=== PATIENT | male | born 1960 | race Hispanic/Latino ===

== ENCOUNTER 2017-04-13 12:54 | Inpatient (IN) | payer BC ==
[2017-04-13 13:02] VITALS: BMI 29.4
--- NOTE | 2017-04-13 13:38 | ED PDOC ---
Arrival/HPI - General Time Seen by Provider: 04/13/17 12:58 Historian: Patient - History of Present Illness Narrative History of Present Illness (Text): 04/13/17 13:07 A 56 year old male, whose past medical history includes diabetes (not on any medication currently), DVT and Gout, is sent to the emergency department by PMD for evaluation of chest pain. Patient notes yesterday evening and this morning he had some chest tightness with diaphoresis, lightheadedness and nausea. Patient states that he has lost his vision in the left eye over the past few days; being followed by opthalmology for recent retinal artery occlusion. He denies any unilateral weakness, gait change, speech change, or other complaints at this time. PMD: Dr. Flores Time/Duration: 24 hours Symptom Onset: Sudden Symptom Course: Other Quality: Tightness Activities at Onset: Rest Context: Home Past Medical History - Provider Review Nursing Documentation Reviewed: Yes - Infectious Disease Hx of Infectious Diseases: None - Tetanus Immunization Tetanus Immunization: Unknown - Cardiac Hx Cardiac Disorders: No - Neurological Hx Neurological Disorder: No - HEENT Hx HEENT Disorder: No - Renal Hx Renal Disorder: No - Endocrine/Metabolic Hx Diabetes Mellitus Type 2: Yes (stopped taking pills after losing 40 lbs) - Hematological/Oncological Hx Blood Disorders: No - Integumentary Hx Dermatological Disorder: Yes Other/Comment: rosacia - Gastrointestinal Hx Gastrointestinal Disorders: No - Genitourinary/Gynecological Hx Genitourinary Disorders: No - Psychiatric Hx Depression: No Hx Emotional Abuse: No Hx Physical Abuse: No Hx Substance Use: No - Past Surgical History Past Surgical History: Non-Contributing - Anesthesia Hx Anesthesia: No - Suicidal Assessment Feels Threatened In Home Enviroment: No Family/Social History - Physician Review Nursing Documentation Reviewed: Yes Family/Social History: Unknown Family HX Smoking Status: Never Smoked Hx Alcohol Use: No Hx Substance Use: No Hx Substance Use Treatment: No Allergies/Home Meds Allergies/Adverse Reactions: Allergies No Known Allergies Allergy (Verified 04/13/17 13:36) Home Medications: Home Meds Medication Instructions Recorded Confirmed No Known Home Med 04/13/17 04/13/17 Review of Systems - Physician Review All systems were reviewed & negative as marked: Yes - Review of Systems Constitutional: absent: Fevers Eyes: Vision Changes Cardiovascular: Chest Pain Gastrointestinal: Nausea. absent: Vomiting Neurological: Other (lightheaded). absent: Focal Weakness, Gait Changes Endocrine: Diaphoresis Physical Exam Vital Signs Reviewed: Yes Vital Signs Temp Pulse Resp BP Pulse Ox 04/13/17 15:00 69 18 162/86 H 96 04/13/17 13:02 98.3 F 74 18 164/94 H 96 Temperature: Afebrile Blood Pressure: Hypertensive Pulse: Regular Respiratory Rate: Normal Appearance: Positive for: Well-Appearing, Non-Toxic, Comfortable Pain Distress: None Mental Status: Positive for: Alert and Oriented X 3 - Systems Exam Head: Present: Atraumatic, Normocephalic Pupils: Present: PERRL Extroacular Muscles: Present: EOMI Conjunctiva: Present: Normal Mouth: Present: Moist Mucous Membranes Pharnyx: Present: Normal. No: ERYTHEMA, EXUDATE Neck: Present: Normal Range of Motion Respiratory/Chest: Present: Clear to Auscultation, Good Air Exchange. No: Respiratory Distress, Accessory Muscle Use Cardiovascular: Present: Regular Rate and Rhythm, Normal S1, S2. No: Murmurs Abdomen: Present: Normal Bowel Sounds. No: Tenderness, Distention, Peritoneal Signs Back: Present: Normal Inspection Upper Extremity: Present: Normal Inspection. No: Cyanosis, Edema Lower Extremity: Present: Normal Inspection. No: Edema Neurological: Present: GCS=15, CN II-XII Intact, Speech Normal, Motor Func Grossly Intact, Normal Sensory Function Skin: Present: Warm, Dry, Normal Color. No: Rashes Psychiatric: Present: Alert, Oriented x 3, Normal Insight, Normal Concentration Medical Decision Making ED Course and Treatment: 04/13/17 13:07 Impression: A 56 year old male with chest pain. Differential Diagnosis included but are not limited to: ACS Plan: -- Head CT -- Chest X-ray -- Labs -- Urinalysis -- Reassess and disposition Prior Visits: Notes and results from previous visits were reviewed. The patient last presented to the emergency department on 12/07/15 for evaluation of chest discomfort. Progress Notes: 04/13/17 14:[address]: Dictator : James Taylor MD IMPRESSION: No acute findings 04/13/17 16:13 Patient with recent vision loss and chest pain earlier. EKG is unremarkable as are the first set of CE. Creatinine is noted to be at 2.0; will start IVF. CT brain and remainder of neuro exam are unremarkable - will give asa and place on observation on tele on Dr. Flores's service. - Lab Interpretations Lab Results: 04/13/17 13:30 04/13/17 13:30 Lab Results 04/13/17 13:30: Sodium 139, Potassium 4.7, Chloride 108 H, Carbon Dioxide 25, Anion Gap 11, BUN 31 H, Creatinine 2.0 H, Est GFR ( Amer) 42, Est GFR ( Non-Af Amer) 35, Random Glucose 127 H, Calcium 8.8, Magnesium 2.1, Total Bilirubin 0.9, AST 37, ALT 35, Alkaline Phosphatase 67, Lactate Dehydrogenase 524, Total Creatine Kinase 80, Troponin I < 0.01, Total Protein 6.8, Albumin 3.4 , Globulin 3.4, Albumin/Globulin Ratio 1.0 L, Triglycerides 139, Cholesterol 181 , LDL Cholesterol Direct 118, HDL Cholesterol 32, Lipase 176 04/13/17 13:30: Urine Color Yellow, Urine Appearance Sl cloudy, Urine pH 6.0, Ur Specific [place] <= 1.005, Urine Protein 100 H, Urine Glucose (UA) Negative, Urine Ketones Negative, Urine Blood Negative, Urine Nitrate Negative, Urine Bilirubin Negative, Urine Urobilinogen 0.2, Ur Leukocyte Esterase Negative, Urine RBC Negative, Urine WBC Negative 04/13/17 13:30: PT 11.2, INR 1.04, APTT 25.1 04/13/17 13:30: WBC 5.6 D, RBC 3.65, Hgb 11.4 L, Hct 33.5 L, MCV 91.8, MCH 31.2 , MCHC 34.0, RDW 13.1, Plt Count 159, MPV 11.6 H, Gran % 52.5, Lymph % (Auto) 36.9 H, [place] % (Auto) 9.2 H, Eos % (Auto) 0.9 L, Baso % (Auto) 0.5, Gran # 2.92 , Lymph # 2.1, [place] # 0.5, Eos # 0.1, Baso # 0.03 I have reviewed the lab results: Yes - RAD Interpretation Radiology Orders: 04/13/17 13:22 CHEST PORTABLE [RAD] Stat 04/13/17 13:24 Brain [HEAD W/O CONTRAST] [CT] Stat - EKG Interpretation EKG Interpretation (Text): 04/13/17 16:16 NSR @ 67; no ST/T changes; normal intervals; left axis. - Medication Orders Current Medication Orders: Aspirin (Aspirin Chewable) 324 mg PO STAT STA Stop: 04/13/17 16:12 - Scribe Statement The provider has reviewed the documentation as recorded by the Scribe Tiffanie Conroy Provider Scribe Attestation: All medical record entries made by the Scribe were at my direction and personally dictated by me. I have reviewed the chart and agree that the record accurately reflects my personal performance of the history, physical exam, medical decision making, and the department course for this patient. I have also personally directed, reviewed, and agree with the discharge instructions and disposition. Disposition/Present on Arrival - Present on Arrival Any Indicators Present on Arrival: No History of DVT/PE: No History of Uncontrolled Diabetes: No Urinary Catheter: No History Surgical Site Infection Following: None - Disposition Have Diagnosis and Disposition been Completed?: Yes Diagnosis: Chest pain, Vision loss, Renal insufficiency Disposition: HOME/ ROUTINE Disposition Time: 15:10 Patient Plan: Observation, Telemetry Patient Problems: Current Active Problems Problem Status Onset Chest pain Acute Condition: FAIR
[2017-04-13 13:48] LABS: ADD MANUAL DIFF? NO
[2017-04-13 14:03] LABS: ALKALINE PHOSPHATASE 67 U/L (38-133); ALT/SGPT 35 U/L (7-56); AST/SGOT 37 U/L (15-59); BILIRUBIN,TOTAL 0.9 mg/dL (0.2-1.3); BLOOD UREA NITROGEN 31 mg/dL (7-21); CALCIUM 8.8 mg/dL (8.4-10.5); CARBON DIOXIDE 25 mmol/L (21-33); CHLORIDE 108 mmol/L (98-107); CHOLESTEROL 181 mg/dL (130-200); GFR AFRICAN-AMERICAN 42; GLUCOSE,RANDOM 127 mg/dL (70-110); LIPASE 176 U/L (23-300); MAGNESIUM 2.1 mg/dL (1.7-2.2); POTASSIUM 4.7 mmol/L (3.6-5.0); SODIUM 139 mmol/L (132-148); TOTAL PROTEIN 6.8 g/dL (5.8-8.3)
--- NOTE | 2017-04-13 14:03 | CT ---
PROCEDURE: CT HEAD WITHOUT CONTRAST. HISTORY: L eye loss of vision COMPARISON: None available. TECHNIQUE: Axial computed tomography images were obtained through the head/brain without intravenous contrast. Radiation dose: Total exam DLP = 858 mGy-cm. This CT exam was performed using one or more of the following dose reduction techniques: Automated exposure control, adjustment of the mA and/or kV according to patient size, and/or use of iterative reconstruction technique. FINDINGS: HEMORRHAGE: No intracranial hemorrhage. BRAIN: No mass effect or edema. No atrophy or chronic microvascular ischemic changes. VENTRICLES: Unremarkable. No hydrocephalus. CALVARIUM: Unremarkable. PARANASAL SINUSES: Unremarkable as visualized. No significant inflammatory changes. MASTOID AIR CELLS: Unremarkable as visualized. No inflammatory changes. OTHER FINDINGS: None. IMPRESSION: No acute findings
[2017-04-13 14:04] LABS: INR 1.04 (0.93-1.08); PARTIAL THROMBOPLASTIN TIME 25.1 Seconds (23.7-30.8)
[2017-04-13 14:10] LABS: BASO # 0.03 K/mm3 (0.0-2.0); BASO % 0.5 % (0.0-3.0); EOS # 0.1 (0.0-0.7); EOS % 0.9 % (1.5-5.0); GRAN # 2.92 (1.4-6.5); GRAN % 52.5 % (50.0-68.0); HEMATOCRIT 33.5 % (42.0-52.0); LYMPH # 2.1 (1.2-3.4); LYMPH % 36.9 % (22.0-35.0); MEAN CELL VOLUME 91.8 fL (80.0-105.0); MEAN CORPUSCULAR HEMOGLOBIN 31.2 pg (25.0-35.0); MEAN PLATELET VOLUME 11.6 fl (7.0-11.0); MONO # 0.5 (0.1-0.6); MONO % 9.2 % (1.0-6.0); PLATELET COUNT 159 10^3/uL (120.0-450.0); RED CELL DISTRIBUTION WIDTH 13.1 % (11.5-14.5); URINE BILIRUBIN NEGATIVE (NEGATIVE); URINE BLOOD NEGATIVE (NEGATIVE); URINE GLUCOSE (UA) NEGATIVE (NEGATIVE); URINE KETONE NEGATIVE (NEGATIVE); URINE LEUKOCYTE ESTERASE NEGATIVE Leu/uL (NEGATIVE); URINE PROTEIN 100 mg/dL (<30 mg/dL); URINE UROBILINOGEN 0.2 E.U./dL (<1 E.U./dL); WHITE BLOOD COUNT 5.6 10^3/ul (4.5-11.0)
[2017-04-13 14:12] LABS: URINE APPEARANCE SL CLOUDY (CLEAR); URINE COLOR YELLOW (YELLOW)
[2017-04-13 14:17] LABS: TROPONIN I < 0.01 ng/mL
[2017-04-13 14:29] LABS: URINE RBC NEGATIVE /hpf (0-2); URINE WBC NEGATIVE /hpf (0-6)
--- NOTE | 2017-04-13 17:13 | US ---
PROCEDURE: Bilateral carotid artery duplex ultrasound HISTORY: Carotid stenosis TIA PHYSICIAN(S): Jalen Hahn MD. TECHNIQUE: Duplex sonography and color-flow Doppler were used to evaluate the carotid bifurcations and limited segments of the vertebral arteries bilaterally. The exam is somewhat limited by tortuous vessels. FINDINGS: There is mild smooth heterogeneous plaque noted at the carotid bifurcations bilaterally. The peak systolic velocity in the proximal right internal carotid artery is 81 cm/sec. This corresponds to a 20 to 39% proximal right ICA stenosis. Normal systolic velocities are noted in the proximal right external carotid artery. There is antegrade flow in the right vertebral artery. The peak systolic velocity in the proximal left internal carotid artery is 77 cm/sec. This corresponds to a 20 to 39% proximal left ICA stenosis. Normal systolic velocities are noted in the proximal left external carotid artery. There is antegrade flow in the left vertebral artery. IMPRESSION: 1. Bilateral 20-39% proximal ICA stenoses. 2. Antegrade flow in both vertebral arteries.
--- NOTE | 2017-04-13 17:38 | RAD ---
HISTORY: chest pain COMPARISON: 12/07/2015 FINDINGS: LUNGS: No active pulmonary disease. PLEURA: No significant pleural effusion identified, no pneumothorax apparent. CARDIOVASCULAR: Normal. OSSEOUS STRUCTURES: No significant abnormalities. VISUALIZED UPPER ABDOMEN: Normal. OTHER FINDINGS: None. IMPRESSION: No active disease.
[2017-04-13] MEDS ORDERED: Pneumococcal 23-Valent Vaccine IM ONE (22:05)
--- NOTE | 2017-04-13 22:11 | CARD ---
APPROVED REPORT EKG Measurement Heart [id number] <Conclusion> Normal sinus rhythm Minimal voltage criteria for LVH, may be normal variant Borderline ECG
[2017-04-14 07:57] LABS: ADD MANUAL DIFF? NO
[2017-04-14 08:01] LABS: BASO # 0.02 K/mm3 (0.0-2.0); BASO % 0.4 % (0.0-3.0); EOS # 0.1 (0.0-0.7); EOS % 1.6 % (1.5-5.0); GRAN # 3.06 (1.4-6.5); GRAN % 56.1 % (50.0-68.0); HEMATOCRIT 32.7 % (42.0-52.0); LYMPH # 1.8 (1.2-3.4); LYMPH % 33.5 % (22.0-35.0); MEAN CELL VOLUME 91.9 fL (80.0-105.0); MEAN CORPUSCULAR HEMOGLOBIN 30.6 pg (25.0-35.0); MEAN CORPUSCULAR HGB CONC 33.3 g/dl (31.0-37.0); MEAN PLATELET VOLUME 11.2 fl (7.0-11.0); MONO # 0.5 (0.1-0.6); MONO % 8.4 % (1.0-6.0); PLATELET COUNT 145 10^3/uL (120.0-450.0); WHITE BLOOD COUNT 5.5 10^3/ul (4.5-11.0)
[2017-04-14 08:17] LABS: BLOOD UREA NITROGEN 32 mg/dL (7-21); CARBON DIOXIDE 26 mmol/L (21-33); CHLORIDE 110 mmol/L (98-107); GFR AFRICAN-AMERICAN 45; GLUCOSE,RANDOM 156 mg/dL (70-110); POTASSIUM 5.2 mmol/L (3.6-5.0); SODIUM 141 mmol/L (132-148); URIC ACID 7.5 mg/dL (3.5-8.5)
[2017-04-14 09:33] LABS: CHOLESTEROL 168 mg/dL (130-200)
[2017-04-14 09:49] LABS: TROPONIN I < 0.01 ng/mL
--- NOTE | 2017-04-14 16:04 | CARD ---
APPROVED REPORT Protocol: SERJIO Test Type: Sestamibi Stress Test Attending Physician: Dr. Xenia Hwang Referring Physician: Dr. Lauro Flores Test Indications: Chest Pain Height:5 ft 10 in Weight:205lbs Medications: ASA lipitor Medical History: 56 y/o male hx of chest pain Target HR: 165 bpm Resting ECG: RSR. Resting Heart Rate: 74 bpm Resting Blood Pressure: 110/80mmHg Submaximum (85%): 140 bpm POST EXERCISE Reason for Termination: Fatigue. Target HR: No Max HR: 164 bpm 99% of Maximum Predicted HR: 165 bpm Exercise duration: 10:41 min:sec, 4 Stage Exercise capacity: 12.8METs Max Blood Pressure: 150/88mmHg Blood Pressure response to exercise: normal resting BP - appropriate response Heart Rate response to exercise: appropriate Chest Pain: No, none Angina index: 0 Arrhythmia: No, none ST Change: No, none Deviation: 0 mm TEST SUMMARY [id number]/.0. [id number]/80.0. EXERCISESTAGE [id number]/84.0. EXERCISESTAGE 203:[id number]/84.0. EXERCISESTAGE 303:[id number]/84.0. EXERCISESTAGE 401:[id number]/.4. [id number]/82.0. INTERPRETATION Stress EKG Conclusion: MYOVIEW NUCLEAR STRESS TEST STOPPED AFTER 10 MINUTES AND 41 SECONDS OF SERJIO PROTOCOL DUE TO FATIGUE. PATIENT ACHIEVED 93% OF PREDICTED HEART RATE. NO CHEST PAIN. NO ST-T CHANGES. NUCLEAR SCAN REPORT PENDING. Signed by Xenia Hwang Electronically Approved: 04/14/2017 11:09:31 EXAM: Myocardial Perfusion REST/STRESS Stress Test Type: Exercise Treadmill Imaging Protocol Rest Spect myocardial perfusion imaging was performed in supine position 45 minutes following the injection of 10.9 mCi of Tc-99 Myoview. At peak stress, the patient was injected intravenously with 30.9mCi of Tc-99 tetrofosmin after an exercise time of 10 minutes and 41 seconds. Gated Stress Spect was performed 60 minutes after intravenous Tc-99 Myoview injection. The images were gated to evaluate regional wall motion and calculate ventricular ejection fraction.Images were reconstructed using backfilter projection method in short horizontal and verticle long axis. Spect slices were generated. LV Perfusion The quality of the study is good. The left ventricle is mildly enlarged in size. The right ventricle is unremarkable. The lung uptake is normal. The distribution of tracer reveals a small area of moderately to severely decreased perfusion in the apical wall on the stress study. The remainder of the LV myocardium is unremarkable. The rest myocardial perfusion study shows improvement of apical defect. Wall Motion Wall motion study shows good contractility of the left ventricle. LVEF = 51%. Conclusion 1. Probably abnormal SPECT myocardial perfusion study. 2. Partially reversible, apical defect is suspicious of ischemia. 3. Normal gated wall motion of the left ventricle.
--- NOTE | 2017-04-14 19:17 | CARD ---
APPROVED REPORT EXAM: Two-dimensional and M-mode echocardiogram with Doppler and color Doppler. INDICATION Chest Pain 2D DIMENSIONS Left Atrium (2D)4.0 (1.6-4.0cm)IVSd1.0 (0.7-1.1cm) LVDd4.5 (3.9-5.9cm)PWd1.1 (0.7-1.1cm) LVDs3.0 (2.5-4.0cm)FS (%) 34.3 % LVEF (%)63.4 (>50%) M-Mode DIMENSIONS Aortic Root2.70 (2.2-3.7cm)Aortic Cusp Exc.1.70 (1.5-2.0cm) Aortic Valve AoV Peak Gtyjclfk964.0cm/Chung Peak GR.7mmHg Mitral Valve MV E Wsggkviq21.8cm/sMV A Sghgswaz93.5cm/sE/A ratio0.9 TDI E/Lateral E'0.0E/Medial E'0.0 Tricuspid Valve TR Peak Vvxsgrws742ft/sRAP OPAEMLVV01xnKoLZ Peak Gr.19mmHg [id number] LEFT VENTRICLE The left ventricle is normal size. There is mild concentric left ventricular hypertrophy. The left ventricular function is normal.EF-55-60% There is normal LV segmental wall motion. Transmitral Doppler flow pattern is Grade III-reversible restrictive diastolic dysfunction. No left ventricle thrombus noted on this study. There is no ventricular septal defect visualized. There is no left ventricular aneurysm. There is no mass noted in the left ventricle. RIGHT VENTRICLE The right ventricle is normal size. There is normal right ventricular wall thickness. The right ventricular systolic function is normal. ATRIA The left atrium is borderline dilated. The right atrium size is normal. The interatrial septum is intact with no evidence for an atrial septal defect. AORTIC VALVE The aortic valve is thickened but opens well. No aortic regurgitation is present. There is no aortic valvular stenosis. There is no aortic valvular vegetation. MITRAL VALVE The mitral valve is thickened but opens well. Mitral regurgitation is mild. There is no mitral valve stenosis. There is no evidence of mitral valve prolapse. TRICUSPID VALVE The tricuspid valve leaflets are thickened , but open well. There is mild tricuspid regurgitation.RVSP-29 mmof Hg. There is no tricuspid valve stenosis. There is no tricuspid valve prolapse or vegetation. PULMONIC VALVE The pulmonary valve is normal in structure. There is trace pulmonic valvular regurgitation. There is no pulmonic valvular stenosis. GREAT VESSELS The aortic root is normal in size. The ascending aorta is normal in size. The pulmonary artery is normal. The IVC is normal in size and collapses >50% with inspiration. PERICARDIAL EFFUSION There is no pleural effusion. There is no pericardial effusion. <Conclusion> The left ventricle is normal size. There is mild concentric left ventricular hypertrophy. The left ventricular function is normal.EF-55-60% Mitral regurgitation is mild. There is mild tricuspid regurgitation.RVSP-29 mmof Hg. The IVC is normal in size and collapses >50% with inspiration. There is no pericardial effusion. No Vegetation or Thrombus noted.
[2017-04-14 23:40] VITALS: RESP 20; O2SAT 97
[2017-04-15 06:03] VITALS: BP 148/92; TEMP 97.7
--- NOTE | 2017-04-15 07:17 | CP.PCM.PN ---
Subjective - Date & Time of Evaluation Date of Evaluation: 04/15/17 Time of Evaluation: 07:00 - Subjective Subjective: S. pt isfeeling ok Objective - Vital Signs/Intake and Output Vital Signs (last 24 hours): Temp Pulse Resp BP Pulse Ox 97.7 F 60 20 148/92 H 97 04/15/17 06:00 04/15/17 06:00 04/15/17 06:00 04/15/17 06:00 04/15/17 06:00 Intake and Output: 04/15/17 04/15/17 06:59 18:59 Intake Total 480 Balance 480 - Medications Medications: Current Medications Aspirin (Ecotrin) 81 mg PO DAILY [facility] Last Admin: 04/14/17 11:42 Dose: 81 mg Atorvastatin Calcium (Lipitor) 20 mg PO DIN [facility] Last Admin: 04/14/17 17:22 Dose: 20 mg - Labs Labs: 04/14/17 07:45 04/14/17 07:45 PT 11.2 Seconds (9.9-11.8) 04/13/17 13:30 INR 1.04 (0.93-1.08) 04/13/17 13:30 APTT 25.1 Seconds (23.7-30.8) 04/13/17 13:30 - Constitutional Appears: Well - Head Exam Head Exam: ATRAUMATIC, NORMAL INSPECTION, NORMOCEPHALIC - Eye Exam Eye Exam: EOMI, Normal appearance, PERRL Pupil Exam: NORMAL ACCOMODATION, PERRL - ENT Exam ENT Exam: Mucous Membranes Moist, Normal Exam - Neck Exam Neck Exam: Full ROM, Normal Inspection. absent: Lymphadenopathy - Respiratory Exam Respiratory Exam: Clear to Ausculation Bilateral, NORMAL BREATHING PATTERN - Cardiovascular Exam Cardiovascular Exam: REGULAR RHYTHM, +S1, +S2. absent: Murmur - GI/Abdominal Exam GI & Abdominal Exam: Soft, Normal Bowel Sounds. absent: Tenderness - Rectal Exam Rectal Exam: NORMAL INSPECTION - Exam Exam: Circumcision, NORMAL INSPECTION External exam: NORMAL EXTERNAL EXAM Speculum exam: NORMAL SPECULUM EXAM Bimanual exam: NORMAL BIMANUAL EXAM - Extremities Exam Extremities Exam: Full ROM, Normal Capillary Refill, Normal Inspection. absent : Joint Swelling, Pedal Edema - Back Exam Back Exam: NORMAL INSPECTION - Neurological Exam Neurological Exam: Alert, Awake, CN II-XII Intact, Normal Gait, Oriented x3 - Psychiatric Exam Psychiatric exam: Normal Affect, Normal Mood - Skin Skin Exam: Dry, Intact, Normal Color, Warm Assessment and Plan (1) Vision loss Status: Acute - Assessment and Plan (Free Text) Assessment: Abnormal stress test vision loss Plan: Will hold critical access hospital till Neurio/ ophtahlmolgy W/u done
--- NOTE | 2017-04-15 08:33 | MRI ---
PROCEDURE: MRI BRAIN WITHOUT CONTRAST HISTORY: amaouosis fujax COMPARISON: None. TECHNIQUE: Multiplanar, multisequence MR images of the brain were obtained without intravenous contrast enhancement. FINDINGS: HEMORRHAGE: None DWI: No evidence of an acute or early subacute infarction. BRAIN PARENCHYMA: No mass effect or edema. No atrophy or chronic microvascular ischemic changes. VENTRICLES: Unremarkable. No hydrocephalus. CRANIUM: Unremarkable. ORBITS: Grossly unremarkable. PARANASAL SINUSES/MASTOIDS: Clear VASCULAR SYSTEM: Skull base flow voids intact. OTHER FINDINGS: None. IMPRESSION: Unremarkable non contrast enhanced MRI of the brain.
[2017-04-15 08:47] LABS: HEMATOCRIT 34.5 % (42.0-52.0); MEAN CELL VOLUME 91.5 fL (80.0-105.0); MEAN CORPUSCULAR HEMOGLOBIN 31.3 pg (25.0-35.0); MEAN CORPUSCULAR HGB CONC 34.2 g/dl (31.0-37.0); MEAN PLATELET VOLUME 11.9 fl (7.0-11.0); WHITE BLOOD COUNT 6.3 10^3/ul (4.5-11.0)
[2017-04-15 11:40] VITALS: PULSE 75
== END 2017-04-15 11:53 | disposition home or self-care (01) | DRG 313 ==
LOC: ED 12:54 → ERH 15:11 → 2RSO 21:08 → OBSVTOIN 04-14 15:00
PROVIDERS: ADMIT Internal Medicine; ATTEND Internal Medicine
DX: R07.89 Other chest pain (principal); E11.311 Type 2 diabetes mellitus with unspecified diabetic retinopathy with macular edema; H34.12 Central retinal artery occlusion, left eye; H54.7 Unspecified visual loss; R94.39 Abnormal result of other cardiovascular function study; N28.9 Disorder of kidney and ureter, unspecified

== ENCOUNTER 2017-10-09 14:22 | Inpatient (IN) | payer BC ==
[2017-10-09 14:36] VITALS: BMI 28.5
[2017-10-09 15:28] LABS: BASO # 0.01 K/mm3 (0.0-2.0); BASO % 0.1 % (0.0-3.0); EOS % 0.3 % (1.5-5.0); GRAN # 4.28 (1.4-6.5); GRAN % 62.6 % (50.0-68.0); HEMATOCRIT 31.9 % (42.0-52.0); LYMPH # 1.8 (1.2-3.4); LYMPH % 26.2 % (22.0-35.0); MEAN CELL VOLUME 90.9 fl (80.0-105.0); MEAN CORPUSCULAR HEMOGLOBIN 31.3 pg (25.0-35.0); MEAN CORPUSCULAR HGB CONC 34.5 g/dl (31.0-37.0); MEAN PLATELET VOLUME 11.5 fl (7.0-11.0); MONO # 0.7 (0.1-0.6); MONO % 10.8 % (1.0-6.0); RED CELL DISTRIBUTION WIDTH 12.8 % (11.5-14.5); WHITE BLOOD COUNT 6.8 10^3/ul (4.5-11.0)
[2017-10-09 15:49] LABS: TROPONIN I < 0.01 ng/mL
[2017-10-09 15:50] LABS: INR 1.08 (0.93-1.08)
[2017-10-09 15:53] LABS: ALB/GLOB RATIO 0.9 (1.1-1.8); ALKALINE PHOSPHATASE 94 U/L (38-126); ALT/SGPT 51 U/L (7-56); AST/SGOT 48 U/L (17-59); BILIRUBIN,TOTAL 0.4 mg/dL (0.2-1.3); BLOOD UREA NITROGEN 34 mg/dL (7-21); CALCIUM 8.2 mg/dL (8.4-10.5); CARBON DIOXIDE 23 mmol/L (21-33); CHLORIDE 103 mmol/L (98-107); GFR AFRICAN-AMERICAN 26; GLUCOSE,RANDOM 140 mg/dL (70-110); MAGNESIUM 2.3 mg/dL (1.7-2.2); POTASSIUM 4.9 mmol/L (3.6-5.0); SODIUM 136 mmol/L (132-148); TOTAL PROTEIN 6.9 g/dL (5.8-8.3)
[2017-10-09 16:26] LABS: URINE BILIRUBIN NEGATIVE (NEGATIVE); URINE BLOOD SMALL (NEGATIVE); URINE GLUCOSE (UA) 100 mg/dL (NEGATIVE); URINE KETONE NEGATIVE (NEGATIVE); URINE LEUKOCYTE ESTERASE NEGATIVE Leu/uL (NEGATIVE); URINE PROTEIN >=300 mg/dL (<30 mg/dL); URINE UROBILINOGEN 0.2 E.U./dL (<1 E.U./dL)
[2017-10-09 16:39] LABS: URINE APPEARANCE SL CLOUDY (CLEAR); URINE COLOR YELLOW (YELLOW)
[2017-10-09 16:45] LABS: URINE BACTERIA MOD (NEG); URINE WBC 15 - 20 /hpf (0-6)
--- NOTE | 2017-10-09 16:54 | RAD ---
HISTORY: History of persistent fevers COMPARISON: 04/13/2017 FINDINGS: LUNGS: No active pulmonary disease. PLEURA: No significant pleural effusion identified, no pneumothorax apparent. CARDIOVASCULAR: No radiographic findings to suggest acute or significant cardiovascular disease. OSSEOUS STRUCTURES: No significant abnormalities. VISUALIZED UPPER ABDOMEN: Normal. OTHER FINDINGS: None. IMPRESSION: No active disease. No significant interval change compared to the prior examination(s).
[2017-10-09] MEDS ORDERED: cefTRIAXone 1 gm 1 GM/100 ML BAG IVPB STA (17:01)
--- NOTE | 2017-10-09 18:53 | ED PDOC ---
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 Reportedly the patient has been experiencing fevers for the past 4-5 days. He states that he was been waking up in the middle of the night with " cold sweats" and headaches, and has had fever intermittently of "up to 104". He reports some generalized aches and pains, but denies any coughing or congestion. He denies abdominal pain. He denies nausea or vomiting or diarrhea. He denies dysuria or frequency. He states that he was seen by his PMD and prescribed Tamiflu earlier in the week. He presented to [facility] in [facility] for persistent symptoms and was found to have elevated Cr of 3.0. Patient transferred to [facility] accepted by Dr. Melba Flores for admission for evaluation of symptoms and acute renal failure. Patient DENIES any recent travel. Denies any chest pain or shortness of breath. Denies headache currently. States he has had leg edema IN THE PAST but not currently. Reports he has had hypertension that appears to be less controlled recently. He denies extremity rash or rash to palms or soles. States he has had blister sores develop in mouth over the past 2 days. Denies drooling or difficulty swallowing currently. He states urine appears darker over the past several days, and he has had some increased urination over the past year. Time/Duration: Prior to Arrival Symptom Onset: Gradual Past Medical History - Infectious Disease Hx of Infectious Diseases: None - Tetanus Immunization Tetanus Immunization: Unknown - Cardiac Hx Hypertension: Yes - Pulmonary Hx Respiratory Disorders: No - Neurological HX Cerebrovascular Accident: Yes (L eye partial vision) - HEENT Hx HEENT Disorder: Yes (eyeglasses) Other/Comment: pt is being treated by dr brand from [facility] with injections to both eyes every 6 wks and laser treatments for diabetic retinopathy on april 10 2017 pt lost sight in left eye for 2 hours, then again on april 11 2017 fot 4 or 5 hours went to see his eye specilist and was told he had a stroke to left eye cause unknown - Renal Hx Renal Disorder: Yes Hx Renal Failure: Yes - Endocrine/Metabolic Hx Diabetes Mellitus Type 2: Yes (controlled by diet) - Hematological/Oncological Hx Blood Disorders: No - Integumentary Hx Dermatological Disorder: Yes Other/Comment: [place] - Musculoskeletal/Rheumatological Hx Falls: No - Gastrointestinal Hx Gastrointestinal Disorders: No - Genitourinary/Gynecological Hx Genitourinary Disorders: No - Psychiatric Hx Depression: No Hx Emotional Abuse: No Hx Physical Abuse: No Hx Substance Use: No - Past Surgical History Past Surgical History: Non-Contributing - Surgical History Hx Musculoskeletal Surgery: Yes Hx Orthopedic Surgery: Yes Other/Comment: Rhinoplasty. Carpal tunnel - Anesthesia Hx Anesthesia: Yes Hx Anesthesia Reactions: No Hx Malignant Hyperthermia: No - Suicidal Assessment Feels Threatened In Home Enviroment: No Family/Social History Family/Social History: Unknown Family HX Smoking Status: Never Smoked Hx Alcohol Use: No Hx Substance Use: No Hx Substance Use Treatment: No Allergies/Home Meds Allergies/Adverse Reactions: Allergies No Known Allergies Allergy (Verified 04/13/17 13:36) Home Medications: Home Meds Medication Instructions Recorded Confirmed Lisinopril [Zestril] 2 tab PO DAILY 10/09/17 10/09/17 Metoprolol Succinate [Toprol XL] 1 tab PO DAILY 10/09/17 10/09/17 Oseltamivir Phosphate [Tamiflu] 1 cap PO DAILY 10/09/17 10/09/17 Review of Systems - Review of Systems Constitutional: Fatigue, Fevers, Night Sweats. absent: Weight Change Eyes: Vision Changes (since March of this year, no new changes) ENT: Sore Throat. absent: Tinnitus, Voice Changes, Rhinorrhea, Sinus Congestion Respiratory: absent: SOB, Wheezing Cardiovascular: absent: Chest Pain, Palpitations, Calf Pain, CURRY Gastrointestinal: absent: Abdominal Pain, Nausea, Vomiting Genitourinary Male: absent: Dysuria, Frequency, Hematuria Musculoskeletal: Myalgias. absent: Arthralgias, Back Pain, Neck Pain Skin: absent: Rash Neurological: Headache, Dizziness. absent: Focal Weakness, Gait Changes, Speech Changes, Facial Droop, Disequilibrium, Seizure Endocrine: Diaphoresis. absent: Polyuria Hemo/Lymphatic: absent: Easy Bleeding Psychiatric: absent: Depression Physical Exam Vital Signs Reviewed: Yes Vital Signs Temp Pulse Resp BP Pulse Ox 10/09/17 16:31 79 18 148/89 97 10/09/17 14:40 98.3 F 81 18 155/93 H 97 Temperature: Afebrile Appearance: Positive for: Well-Appearing, Non-Toxic, Comfortable Pain Distress: Mild Mental Status: Positive for: Alert and Oriented X 3 - Systems Exam Head: Present: Atraumatic, Normocephalic Pupils: Present: Other (visual acuity at baseline with no reported acute visual field or acuity disturbance) Extroacular Muscles: Present: EOMI Conjunctiva: No: Injected Ears: No: Erythema Mouth: Present: Moist Mucous Membranes, Other (sores noted to lips, mucous membranes) Pharnyx: No: ERYTHEMA, EXUDATE, Peritonsilar Swelling, Uvular Deviation, Muffled /Hoarse Voice, Strider Nose (Internal): Present: Normal Inspection Neck: Present: Normal Range of Motion. No: Meningeal Signs, MIDLINE TENDERNESS Respiratory/Chest: Present: Clear to Auscultation. No: Respiratory Distress, Wheezes, Tachypneic Cardiovascular: Present: Regular Rate and Rhythm, Murmurs Abdomen: No: Tenderness, Distention Upper Extremity: No: Cyanosis Lower Extremity: Present: NORMAL PULSES, Neurovascularly Intact. No: Edema, Tenderness, Swelling Neurological: Present: Motor Func Grossly Intact, Normal Sensory Function Skin: Present: Warm Psychiatric: Present: Alert, Normal Insight, Normal Concentration Medical Decision Making ED Course and Treatment: 10/09/17 19:17 Patient is a 57 yo male transferred to [place] from outside facility. I reviewed labs from outside facility. Patient had received IV fluid bolus at outside facility prior to arrival. He is currently afebrile but reports intermittent high fevers which will wake him up over the past 4-5 days. Lungs are clear. No cellulitis noted. He does report darker urine over the past several weeks. No retention or frequency. He is nontoxic appearing currently with no meningeal signs. PMHx is significant for left eye visual loss that was diagnosed as leasing representative of CVA in March. He follows up with opthamologist in [facility]. He currently has no acute neurologic deficits. He denies recent travel. No vomiting or diarrhea or bloody stools. UA is significant for casts and protein. It is possible there is a component of a uti, although Cr elevated to 3.0 in March Cr was 1.9. Currently postassium levels unremarkable. I am suspicious of possible infectious etiology of his elevated Cr. Cannot exclude a nephrotic or nephritic syndrome, patient requires close monitoring and analysis of protein and casts in urine in context of recent fevers. He has not traveled to [place] or [place]. His neck is supple with no headache currently, no meningeal signs. I have updated Dr. Melba Flores with patient's presentation and patient admitted. He is cv stable on re-exam, no respiratory distress noted. Ddx nephotic syndrome, nephritic syndrome, UTI, pyelonephritis, endocarditis, dengue, typhoid, infectious process, vasculitis, renal failure, dehydration. - Lab Interpretations Lab Results: 10/09/17 15:08 10/09/17 15:08 Lab Results 10/09/17 15:08: Sodium 136, Potassium 4.9, Chloride 103, Carbon Dioxide 23, Anion Gap 15, BUN 34 H, Creatinine 3.0 H, Est GFR ( Amer) 26, Est GFR ( Non-Af Amer) 22, Random Glucose 140 H, Calcium 8.2 L, Magnesium 2.3 H, Total Bilirubin 0.4, AST 48, ALT 51, Alkaline Phosphatase 94, Lactate Dehydrogenase 629, Total Creatine Kinase 60, Troponin I < 0.01, Total Protein 6.9, Albumin 3.3 , Globulin 3.7, Albumin/Globulin Ratio 0.9 L 10/09/17 15:08: PT 11.8, INR 1.08, APTT 30.0 10/09/17 15:08: WBC 6.8, RBC 3.51, Hgb 11.0 L, Hct 31.9 L, MCV 90.9, MCH 31.3, MCHC 34.5, RDW 12.8, Plt Count 139, MPV 11.5 H, Gran % 62.6, Lymph % (Auto) 26.2 , [place] % (Auto) 10.8 H, Eos % (Auto) 0.3 L, Baso % (Auto) 0.1, Gran # 4.28, Lymph # 1.8, [place] # 0.7 H, Eos # 0.0, Baso # 0.01 - RAD Interpretation Android Developer: Radiologist - EKG Interpretation EKG Interpretation (Text): 10/09/17 19:15 EKG at 15:30 normal sinus rhythm rate of 72 with premature atrial complexes, moderate voltage criteria for lvh Interpreted by ED Physician: Yes Type: 12 lead EKG - Medication Orders Current Medication Orders: Discontinued Medications Ceftriaxone Sodium (Rocephin 1 Gram Ivpb) 1 gm in 100 mls @ 200 mls/hr IVPB ONCE STA PRN Reason: Protocol Stop: 10/09/17 17:30 Last Admin: 10/09/17 17:27 Dose: 200 mls/hr eMAR Start Stop Document 10/09/17 17:27 RG (Rec: 10/09/17 17:28 RG [id number]) Intravenous Solution Start Date 10/09/17 Start Time 17:20 End Date 10/09/17 Lidocaine HCl (Lidocaine 2% Viscous) 15 ml MM STAT STA Stop: 10/09/17 17:21 Last Admin: 10/09/17 17:28 Dose: 15 ml Disposition/Present on Arrival - Present on Arrival Any Indicators Present on Arrival: No History of DVT/PE: No History of Uncontrolled Diabetes: No Urinary Catheter: No History of Decub. Ulcer: No History Surgical Site Infection Following: None - Disposition Have Diagnosis and Disposition been Completed?: Yes Diagnosis: Acute renal failure, Abnormal casts in urine, Hypertension, History of fever, Proteinuria Disposition: HOSPITALIZED Disposition Time: 15:15 Patient Plan: Admission Condition: FAIR
[2017-10-09] MEDS: Metoprolol Succinate 25 mg XL Tab PO SCH (20:00)
[2017-10-09] MEDS: Dextrose 5%/0.45% NS 1,000 ML IV SCH (20:03)
[2017-10-09] MEDS ORDERED: Pneumococcal 23-Valent Vaccine IM ONE (22:43)
[2017-10-10 07:35] LABS: HEMATOCRIT 31.8 % (42.0-52.0); MEAN CELL VOLUME 90.6 fl (80.0-105.0); MEAN CORPUSCULAR HEMOGLOBIN 31.3 pg (25.0-35.0); MEAN CORPUSCULAR HGB CONC 34.6 g/dl (31.0-37.0); RED CELL DISTRIBUTION WIDTH 12.7 % (11.5-14.5); WHITE BLOOD COUNT 7.8 10^3/ul (4.5-11.0)
[2017-10-10 07:55] LABS: ALB/GLOB RATIO 0.9 (1.1-1.8); BILIRUBIN,TOTAL 0.4 mg/dL (0.2-1.3); CALCIUM 8.3 mg/dL (8.4-10.5); POTASSIUM 4.8 mmol/L (3.6-5.0); TOTAL PROTEIN 6.8 g/dL (5.8-8.3)
[2017-10-10] MEDS: Metoprolol Succinate 25 mg XL Tab PO SCH (09:04)
--- NOTE | 2017-10-10 09:52 | CARD ---
APPROVED REPORT EKG Measurement Heart [id number] <Conclusion> Sinus rhythm with premature atrial complexes Leftward axis No change
--- NOTE | 2017-10-10 13:51 | US ---
PROCEDURE: Ultrasound of the Kidneys HISTORY: ARF, CKD, UTI, R/O hydro COMPARISON: None available. TECHNIQUE: Sonogram of the kidneys. FINDINGS: RIGHT KIDNEY: Measures: 5.6 x 10.3 cm. Normal in size, contour and echogenicity. No stone, solid mass lesion or hydronephrosis visualized. LEFT KIDNEY: Measures: 6.3 x 10.4 cm. Normal in size, contour and echogenicity. No stone, solid mass lesion or hydronephrosis visualized. OTHER FINDINGS: None. IMPRESSION: Unremarkable renal sonogram.
[2017-10-10] MEDS: Dextrose 5%/0.45% NS 1,000 ML IV SCH (21:11)
--- NOTE | 2017-10-10 21:30 | CON ---
DATE: 10/10/2017 The patient admitted for Lauro Flores MD REFERRING PHYSICIAN: James Flores MD REASON FOR CONSULTATION: Evaluation of the patient unknown to me who presents with acute on chronic kidney failure in the setting of fever blisters, gout attack, and possible influenza. HISTORY OF PRESENT ILLNESS: The patient is a 57-year-old white male with a long history of diabetes mellitus. Initially non controlled. The patient had lost significant amount of weight and his hemoglobin A1c is now on the 6.5% range. The patient was told in the past that he had mild weakness of the kidney. Going back to the summer of 2016. His BUN was in the 25-30 range with a creatinine in the 1.9 to 2.0 range. The patient was seen after having had a gout attack earlier last week by Dr. Flores for possible influenza. He was treated with Tamiflu. Over the last several days of fever blisters have broken out. His oral intake has decreased. The patient had fevers and sweats went to the outpatient [facility] emergency room in [place] was noted to have an elevated BUN and creatinine and was sent over to the hospital after consultation with Dr. Flores. The patient has a history of diabetic retinopathy receiving laser surgery, he also has a history of mild diabetic nephropathy with mild proteinuria and likely chronic kidney disease stage III. The patient is noted to be mildly anemic. He is being treated for hyperlipidemia. We are asked to evaluate the patient for his elevated BUN and creatinine. Past medical history significant for NIDDM of 20+ years duration. History of mild diabetic nephropathy with chronic kidney disease stage III, history of diabetic retinopathy receiving laser surgery, past history of CVA with diminished vision in his left eye. History of gout, no history of diabetic neuropathy, history of hyperlipidemia and history of mild anemia. Echocardiogram done in 03/2017 shows LVH with MR/TR an ejection fraction of 55% to 60%. MEDICATIONS AT HOME: Include that of Tamiflu, Toprol, Zestril, Lipitor, and Ecotrin. ALLERGIES: THE PATIENT HAS NO KNOWN ALLERGIES TO MEDICATIONS. CURRENT MEDICATIONS IN HOSPITAL: Include that of D5 half-normal saline 80 mL an hour, Ecotrin, viscous lidocaine, Lipitor, Macrobid, Motrin p.r.n., Tamiflu, Toprol, and Zestril. 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 No history of cigarette smoking. No history of alcohol use. FAMILY HISTORY: Father of complications of heart disease. Mother of hypertension and a severe stroke. REVIEW OF SYSTEMS: GENERAL: The patient states appetite and weight have been stable until this recent episode. HEENT: Positive diminished vision in his left eye secondary to a past stroke. History of diabetic retinopathy receiving laser surgery. PULMONARY: No shortness of breath. No history of COPD and zero bronchitis, pneumonia or asthma. CARDIAC: No known history of cardiovascular disease. Positive LVH, MR/TR with ejection fraction of 55% to 60% on echocardiogram done earlier this year. GASTROINTESTINAL: Positive for mild nausea and intermittent vomiting. No diarrhea. GENITOURINARY: The patient states increased urine output. History of chronic kidney disease stage III. ENDOCRINE: History of diabetes on diet therapy, history of diabetic retinopathy and diabetic nephropathy, likely mild. MUSCULOSKELETAL: No complaints. NEUROLOGIC: Past history of CVA with diminished vision in his left eye. HEMATOLOGY/ONCOLOGY: History of mild anemia. No history of malignancy. PSYCHIATRIC HISTORY: Negative. PHYSICAL EXAMINATION: GENERAL: The patient is currently seen on . He is lying comfortable in bed, IV fluids are infusing. He appears to be in no acute distress other than discomfort from the fever blisters he has on his face and lip area. VITAL SIGNS: Blood pressure ranging from 148 to 155 systolic, diastolics ranging from 82 to 89. Temperature 98.5, T max last night was 101.5. Pulse is 77. Respiratory rate is 18. Oxygen saturation is 98%. HEENT: Shows him to be normocephalic, atraumatic. Conjunctivae are pink. Sclerae are nonicteric. Pupils equal, round, react to light, and accommodation. Extraocular muscles are intact. Posterior pharynx is normal. Positive fever blisters over his a lip area. NECK: Supple. No lymphadenopathy. No bruits, no thyromegaly. No neck vein distention. CHEST: Clear to auscultation and percussion. No rales or rhonchi or wheezing. CARDIOVASCULAR: Shows a regular rate and rhythm with MR/TR. Distal lower extremity pulses are 2+ bilaterally. ABDOMEN: Soft. Bowel sounds are normal. No rebound, no guarding, no masses. EXTREMITIES: Show no cyanosis, clubbing or edema. No joint inflammation. NEUROLOGIC: Shows him to be alert, oriented x3 with no gross focal motor or sensory deficits. LABORATORY DATA AND IMAGING: Admitting EKG shows normal sinus rhythm with APCs. Admitting chest x-ray shows no acute pulmonary disease. Labs; CBC, white blood cell count 7.8 with hemoglobin of 11.0, platelet count is normal 138,000. Coags are normal. Chemistry showed normal electrolytes. BUN was 34 on admission and is now 33 today. Creatinine was 3 on admission and it is 2.8 today. Glucose is 195. Calcium is 8.3, magnesium is 2.3. Liver enzymes are normal. Albumin level is 3.1. Urine showed 4+ protein with microscopic hematuria and 15 to 20 white blood cells per high-power field. Moderate bacteria with coarse granular casts. Microbiology cultures are pending. ASSESSMENT: 1. Acute renal failure superimposed on chronic kidney disease stage III. The patient by history appears to have had renal involvement secondary to his diabetes. It appears that he has mild proteinuria and it appears that his baseline creatinine is in the 1.8 to 2.0 range consistent with chronic kidney disease stage III. The patient states that he never had a full renal workup. I will obtain a renal ultrasound and 24-hour urine during his hospitalization. I agree with IV fluid hydration and that the acute component is likely volume related. I will hold lisinopril at this point in time until his creatinine falls back to normal baseline level of 1.8 to 2.0. 2. History of non-insulin diabetes mellitus, long history of diabetes mellitus of 20+ years duration, history of diabetic nephropathy likely mild, history of diabetic retinopathy status post laser surgery. The patient states hemoglobin A1c is in the outpatient setting, it has been in the mid 6 range. 3. Past history of cerebrovascular accident with loss of vision in his left eye. This appears to be stable. 4. Past history of gout, recent attack 1 week ago. 5. History of mild anemia. We will obtain iron, TIBC, ferritin, B12 folate levels. The patient has no past history of knowing of anemia. This will likely worsen with hemodilution as he continues receiving IV fluid hydration. 6. History of mild hyperlipidemia, stable. On statin therapy. 7. History of hypertension. The patient will continue present medical therapy with the exception of holding the angiotensin-converting enzyme inhibitor until his creatinine falls back to baseline levels. 8. History of left ventricular hypertrophy with mitral regurgitation/tricuspid regurgitation, appeared to be stable. PLAN: 1. Discussed with Dr. James Flores. Agree with IV fluid hydration. 2. Possible UTI. Urine cultures are pending. The patient had been started on Macrobid. 3. The patient may receive [id number] topical treatment for his fever blisters of necessary. 4. A 24-hour urine for creatinine clearance and protein to establish a baseline, this can be started tomorrow. 5. Renal ultrasound for assessment of kidney size in light of his history of likely chronic kidney disease stage III. 6. Accurate I's and O's and daily labs. 7. The patient should be started on a renal diet in light of his likely diagnosis of chronic kidney disease stage III. We will obtain a PTH level and vitamin D 25 hydroxy level and obtain a phosphorus level. Thank you for letting me partake and share in the care of your patient. Cameron Zamudio MD
[2017-10-11] MEDS: Metoprolol Succinate 25 mg XL Tab PO SCH ×2 (06:14→10:23)
[2017-10-11 07:03] LABS: HEMATOCRIT 28.6 % (42.0-52.0); MEAN CELL VOLUME 89.7 fl (80.0-105.0); MEAN CORPUSCULAR HGB CONC 34.6 g/dl (31.0-37.0); MEAN PLATELET VOLUME 11.1 fl (7.0-11.0); RED CELL DISTRIBUTION WIDTH 12.6 % (11.5-14.5); WHITE BLOOD COUNT 5.8 10^3/ul (4.5-11.0)
[2017-10-11 07:42] LABS: IRON 51 ug/dL (45-180)
[2017-10-11 07:52] LABS: BILIRUBIN,TOTAL 0.5 mg/dL (0.2-1.3); CALCIUM 8.2 mg/dL (8.4-10.5); PHOSPHOROUS 3.8 mg/dL (2.5-4.5); POTASSIUM 4.4 mmol/L (3.6-5.0); TOTAL PROTEIN 6.1 g/dL (5.8-8.3)
[2017-10-11 07:53] LABS: ALB/GLOB RATIO 0.8 (1.1-1.8)
[2017-10-11 08:04] LABS: T4 8.5 ug/dL (5.5-11.0)
[2017-10-11 08:18] LABS: THYROID STIMULATING HORMONE 1.6 mIU/mL (0.46-4.68)
[2017-10-11] MEDS: Dextrose 5%/0.45% NS 1,000 ML IV SCH (12:09)
[2017-10-11 12:59] LABS: FOLATE 18.6 ng/mL
[2017-10-12] MEDS: Dextrose 5%/0.45% NS 1,000 ML IV SCH (01:00)
[2017-10-12] MEDS: Metoprolol Succinate 25 mg XL Tab PO SCH ×2 (06:56→08:40)
[2017-10-12 13:39] LABS: CALCIUM 8.5 mg/dL (8.4-10.5); POTASSIUM 4.4 mmol/L (3.6-5.0)
[2017-10-12 14:19] LABS: URINE COLLECTION TIME 24 HOURS
--- NOTE | 2017-10-12 14:44 | PN ---
DATE: SUBJECTIVE: The patient is currently sitting up in bed. He was seen by both myself and Dr. Lauro Flores. He is concerned about blood pressure elevations earlier this morning. His lisinopril was placed on hold because of his elevated creatinine. With hydration, his creatinine has fallen down to 2.3. His blood pressure does remain elevated. He is complaining of an occipital headache. Renal ultrasound came back showing normal kidneys. A 24-hour urine was completed and results are pending. The patient's urine cultures were negative and antibiotics will likely be discontinued. MEDICATIONS: Medication list reviewed. The patient was on D5 half-normal saline. This is being discontinued, Ecotrin, viscous lidocaine, Lipitor, Macrobid, Motrin p.r.n. and Toprol. OBJECTIVE INTAKE/OUTPUT: Intake is 4240 and output is 600. VITAL SIGNS: Blood pressure had been 140/80 and with discontinuation of lisinopril, blood pressure is now 171/96. Temperature is 97 with a T-max of 99.8. Respiratory rate is 18. Heart rate is 88 with a pulse oximetry of 97%. HEENT: Exam shows him to be normocephalic and atraumatic. Conjunctivae are pale. Sclerae are nonicteric. NECK: Supple. No neck vein distention. CHEST: Clear to auscultation and percussion. No rales, rhonchi or wheezing. CARDIOVASCULAR: Shows a regular rate and rhythm with MR/TR. GASTROINTESTINAL: Abdomen is soft. Bowel sounds are normal. No rebound or guarding and no masses. EXTREMITIES: Show no lower extremity cyanosis, clubbing or edema. LABORATORY DATA AND IMAGING STUDIES: Renal ultrasound showed normal kidneys. Labs from today were refused by the patient. He will now allow labs to be done. CBC: White blood cell count of 5.8 and hemoglobin down to 9.9 with hydration. Chemistries from yesterday showed normal electrolytes. BUN is 20 with a creatinine of 2.3. Glucose is 167. Calcium is 8.2 and phosphorus is 3.8. Iron saturations were 26%. B12 level was in the low normal range at 330. Folic acid level was normal. Thyroid function tests were normal. A 24-hour urine was sent and pending. Urine Michael stain is pending. Microbiology; urine cultures were negative. Blood cultures are negative at 48 hours. ASSESSMENT: 1. Acute renal failure superimposed on chronic kidney disease stage III. The patient's baseline creatinine is in the 1.82 range. The patient likely has underlying chronic kidney disease from hypertension and 20 plus years of diabetes. In all likelihood with intravenous fluid hydration, his BUN and creatinine will fall back to normal. 2. History of noninsulin-dependent diabetes mellitus. The patient has a history of diabetic retinopathy status post laser surgery. The patient states hemoglobin A1c levels have been acceptable on the 6.5 range. The patient will continue diet therapy alone. 3. Uncontrolled hypertension. The patient will likely be restarted back on an angiotensin-converting enzyme inhibitor or perhaps an angiotensin receptor alisha. We could go with a more potent long acting angiotensin receptor alisha, perhaps valsartan or olmesartan, Benicar in the outpatient setting as discussed with Dr. Flores. For right now, the patient may be started on calcium channel alisha in addition to his low-dose beta-alisha therapy, this will help lower his blood pressure. 4. History of cerebrovascular accident with loss of vision in his left eye. This appears to be stable. 5. History of gout with a recent attack 1 week ago. 6. History of mild anemia, perhaps secondary to hemodilution. Iron levels are normal. B12 folate levels are normal. 7. Mild hyperlipidemia. The patient will continue on statin therapy and diet therapy. 8. Past history of left ventricular hypertrophy with mitral regurgitation/tricuspid regurgitation, these appear to be stable. PLAN: 1. I have sat down in the room with Dr. Flores and with the patient. We will start the patient on low-dose calcium channel alisha therapy in addition to beta-alisha therapy. The patient did not agree to have blood work done this morning, but we will agree to have labs done now. Creatinine falls back into the 1.9 to 2 range, his baseline. The patient can be started on a longer acting, perhaps more potent angiotensin receptor alisha, my choices were to be valsartan or generic Benicar. 2, A 24-hour urine has been sent and results are pending. 3. As discussed with Dr. Flores and the patient, he may follow with us in the outpatient setting if he so desires. We could help optimize his blood pressure control and monitor his renal function. Cameron Zamudio MD
[2017-10-12 15:46] VITALS: BP 138/94; PULSE 86; RESP 20; TEMP 99.4; O2SAT 100
--- NOTE | 2017-10-13 18:58 | DS ---
HISTORY OF PRESENT ILLNESS: The patient was seen this Wednesday on 10/12/2017, in room 575 bed 2 as he prepares for discharge to home. At the same time, he was also visited by Renal investigations consultant Dr. Zamudio and case was discussed and instructions were reviewed with the patient in front of both of us. He is doing well and ready for discharge to home. Medications were prescribed, adjusted, and reviewed with the patient. 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 The patient developed generalized aches and myalgias, elevated blood pressure, and headaches. He was seen in the local emergency room center and then seen few days later by myself in my office. He has 103.3 fever, general myalgias that were sudden in onset two days before was diagnosed by the flu. Over 48 hours after the onset of the symptoms, we gave a trial of Tamiflu, with very little to no avail. He broke out in oral aphthous ulcers as well as cold sores on the outer lips on the left upper and right lower. He had difficulty swallowing, was not eating. His sugars were out of control. He continued to have fevers in spite taking Advil, Aleve, antiinflammatory medicines, as well as Tylenol and came to the Emergency Room. He was evaluated initially at the [facility] ER on [address] in [place] and then came to [facility] for evaluation after they had recommended admission for hydration. In the ER, his BUN and creatinine were elevated from baseline. His baseline creatinine of 1.8 had risen to 3.0 and the patient is clinically dry and admitted. He was seen by Dr. James Flores on admission and for the following days. He was treated with IV fluids and analgesics. Blood pressure medicines were adjusted. Renal consultation by Dr. Zamudio was called and notes were appreciated. His MINH inhibitor was held initially because of the rise in BUN and creatinine. NSAIDs were discontinued. The patient was hydrated with dextrose in his fluids, causing sugar to become elevated. His blood pressure was better controlled and spiked earlier this morning when his ACEs were stopped. Today, the date of discharge, he was well hydrated. He had refused his blood work earlier this morning and was contemplating leaving the hospital against advise, but was convinced to stay. He was more understanding after explanation by Dr. Zamudio and myself. We will discharge to home. Repeat labs showed BUN and creatinine still elevated with creatinine of 2.3, therefore, we will discharge to home on allopurinol 5 mg daily. Continue the metoprolol. Hold lisinopril. Consider adding irbesartan or losartan in the future. He will follow up with me in the office in two days and with Dr. Zamudio next week. Continue low-salt diet, modified protein intake, avoid the Atkins diet that he had been on in the past. Continue statin and aspirin daily. DISCHARGE DIAGNOSES: 1. Prerenal azotemia with new elevation of BUN and creatinine that did not return complete to baseline during the course of the hospital stay with hydration. 2. Hypertension. 3. Gout. 4. Diabetes. 5. Headaches related to hypertension. 6. Status post visual loss in the left eye. Lauro Flores MD
== END 2017-10-12 16:57 | disposition home or self-care (01) | DRG 684 ==
LOC: ED 14:22 → ERH 15:09 → 5RSO 17:57
PROVIDERS: ADMIT Internal Medicine; ATTEND Internal Medicine
DX: N17.9 Acute kidney failure, unspecified (principal); E11.21 Type 2 diabetes mellitus with diabetic nephropathy; E11.319 Type 2 diabetes mellitus with unspecified diabetic retinopathy without macular edema; I08.1 Rheumatic disorders of both mitral and tricuspid valves; R13.10 Dysphagia, unspecified; E11.22 Type 2 diabetes mellitus with diabetic chronic kidney disease; I12.9 Hypertensive chronic kidney disease with stage 1 through stage 4 chronic kidney disease, or unspecified chronic kidney disease; N18.3 Chronic kidney disease, stage 3 (moderate); M10.9 Gout, unspecified; E78.5 Hyperlipidemia, unspecified; D64.9 Anemia, unspecified; H54.62 Unqualified visual loss, left eye, normal vision right eye; R51 Headache; K12.0 Recurrent oral aphthae; Z79.84 Long term (current) use of oral hypoglycemic drugs; Z86.73 Personal history of transient ischemic attack (TIA), and cerebral infarction without residual deficits